=== PATIENT | male | born 1945 | race Caucasian/White ===

== ENCOUNTER → 2017-01-19 | Outpatient (CLI) | payer MEDICARE, OTHER | END | disposition home or self-care (01) | LOC: CFH 09:44 | PROVIDERS: ATTEND Nurse Practitioner Primary Care | DX: I08.3 Combined rheumatic disorders of mitral, aortic and tricuspid valves (principal); C61 Malignant neoplasm of prostate; E11.9 Type 2 diabetes mellitus without complications; I10 Essential (primary) hypertension; E78.2 Mixed hyperlipidemia | CPT/HCPCS: 93306 ==

== ENCOUNTER → 2017-09-13 | Outpatient (CLI) | payer MEDICARE, OTHER | LOC: ROC 08:36 | PROVIDERS: ATTEND Radiology Radiation Oncology | DX: C61 Malignant neoplasm of prostate (principal); K62.6 Ulcer of anus and rectum; I10 Essential (primary) hypertension; N35.9 Urethral stricture, unspecified; F17.210 Nicotine dependence, cigarettes, uncomplicated; Z85.46 Personal history of malignant neoplasm of prostate | CPT/HCPCS: G0463 ==

== ENCOUNTER 2019-09-25 08:59 | Outpatient (CLI) | payer MEDICARE, OTHER | END 2019-09-25 23:59 | disposition home or self-care (01) | LOC: ROC 08:59 | PROVIDERS: ATTEND Radiology Radiation Oncology | DX: C61 Malignant neoplasm of prostate (principal) | CPT/HCPCS: G0463 ==

== ENCOUNTER 2019-09-29 08:06 | Outpatient (CLI) | payer MEDICARE, OTHER ==
[2019-09-29] MEDS ORDERED: LEUPROLIDE (ELIGARD) 22.5 MG SYR SQ ONE (09:30)
== END 2019-09-29 23:59 | disposition home or self-care (01) ==
LOC: ROC 08:06
PROVIDERS: ATTEND Radiology Radiation Oncology
DX: Z51.11 Encounter for antineoplastic chemotherapy (principal); C61 Malignant neoplasm of prostate
CPT/HCPCS: 96402; J9217

== ENCOUNTER 2019-10-31 07:26 | Outpatient (CLI) | payer MEDICARE, OTHER ==
[2019-10-31] MEDS ORDERED: LIDOCAINE/PF 1%, 30ML IV ONE (09:30)
[2019-10-31] MEDS ORDERED: MIDAZOLAM 1 MG/ML, 5ML IVPush ONE (09:30)
[2019-10-31] MEDS ORDERED: FENTANYL PF 100 MCG/2ML IVPush ONE (09:30)
== END 2019-10-31 23:59 | disposition home or self-care (01) ==
LOC: ROC 07:26
PROVIDERS: ATTEND Radiology Radiation Oncology
DX: C61 Malignant neoplasm of prostate (principal)
CPT/HCPCS: 55876; 76942; 77332; 99156; A4648; J2250; J3010

== ENCOUNTER → 2019-11-20 | Outpatient (CLI) | payer MEDICARE, OTHER | END | disposition home or self-care (01) | LOC: CFH 09:43 | PROVIDERS: ATTEND Radiology Radiation Oncology | DX: C61 Malignant neoplasm of prostate (principal) | CPT/HCPCS: 72195 ==

== ENCOUNTER → 2019-12-29 | Outpatient (CLI) | payer MEDICARE, OTHER ==
[~2019-12-29] MED LIST: LEUPROLIDE 7.5 MG SQ ONE
== END | disposition home or self-care (01) ==
LOC: ROC 07:14
PROVIDERS: ATTEND Radiology Radiation Oncology
DX: Z51.11 Encounter for antineoplastic chemotherapy (principal); C61 Malignant neoplasm of prostate
CPT/HCPCS: 96402; J9217

== ENCOUNTER → 2020-01-22 | Outpatient (CLI) | payer MEDICARE, OTHER | END | disposition home or self-care (01) | LOC: ROC 08:00 | PROVIDERS: ATTEND Radiology Radiation Oncology | DX: C61 Malignant neoplasm of prostate (principal) | CPT/HCPCS: G0463 ==

== ENCOUNTER 2020-07-25 10:19 | Outpatient (CLI) | payer MEDICARE | END 2020-07-25 23:59 | disposition home or self-care (01) | LOC: ROC 10:19 | PROVIDERS: ATTEND Radiology Radiation Oncology | DX: Z08 Encounter for follow-up examination after completed treatment for malignant neoplasm (principal); Z85.46 Personal history of malignant neoplasm of prostate | CPT/HCPCS: G0463 ==

== ENCOUNTER 2020-12-13 10:33 | Emergency (ER) | payer MEDICARE ==
[~2020-12-13] VITALS: Ht 175.3 cm; Wt 86.3 kg
[2020-12-13 10:40] VITALS: BP 167/96
--- NOTE | 2020-12-13 11:02 | NUR ---
ERMD AT BEDSIDE FOR EVALUATION.
[2020-12-13 11:11] LABS: BASOPHILS % (AUTO) 1 % (0-1); EOSINOPHILS % (AUTO) 1 % (1-7); LYMPHOCYTES % (AUTO) 19 % (22-44); MEAN CORPUSCULAR HEMOGLOBIN 31.1 pg (27.5-34.5); MEAN CORPUSCULAR HGB CONC 34.4 g/dL (33.2-36.2); MEAN PLATELET VOLUME 7.2 fL (7.4-10.4); MONOCYTES % (AUTO) 7 % (2-9); NEUTROPHILS % (AUTO) 73 % (42-75); PLATELET COUNT 242 x10^3/uL (130-400); RED CELL DISTRIBUTION WIDTH 12.9 % (9.4-14.8)
[2020-12-13 11:12] LABS: MD NO
[2020-12-13 11:24] LABS: ALANINE AMINOTRANSFERASE 38 U/L (12-78); ALBUMIN 4.3 g/dL (3.4-5.0); ANION GAP 5 mmol/L (5-15); CALCIUM 9.4 mg/dL (8.5-10.1); CHLORIDE 110 mmol/L (98-107); CREATININE 1.24 mg/dL (0.7-1.3)
[2020-12-13 11:26] LABS: ALKALINE PHOSPHATASE 74 U/L (45-117); TOTAL PROTEIN 8.3 g/dL (6.4-8.2)
[2020-12-13] MEDS ORDERED: SUCRALFATE 1 GM TABLET PO SCH (11:30)
[2020-12-13] MEDS ORDERED: FAMOTIDINE 20 MG TABLET PO ONE (11:30)
[2020-12-13] MEDS ORDERED: FAMOTIDINE 20 MG TABLET ONE (11:39)
--- NOTE | 2020-12-13 11:42 | NUR ---
CARAFATE REQUESTED FROM PHARMACY.
--- NOTE | 2020-12-13 11:44 | NUR ---
ERMD AT BEDSIDE TO DISCUSS POC, VERBAL OKAY TO CANCEL CARAFATE.
[2020-12-13] MEDS ORDERED: SUCRALFATE 1 GM TABLET PO ONE (12:00)
--- NOTE | 2020-12-13 12:26 | NUR ---
Patient given discharge instructions and prescriptions and they have confirmed that they understand the instructions. Patient ambulatory with steady gait. NAD, all questions answered appropriately, denies additional needs at this time. No personal belongings left in room after discharge.
== END 2020-12-13 12:26 | disposition home or self-care (01) ==
LOC: ED 12:00
DX: K92.2 Gastrointestinal hemorrhage, unspecified (principal); K92.1 Melena; K64.8 Other hemorrhoids; R07.89 Other chest pain
CPT/HCPCS: 36415; 80053; 83690; 85025; 99283

== ENCOUNTER 2021-01-09 08:00 | Outpatient (CLI) | payer MEDICARE | END 2021-01-09 23:59 | disposition home or self-care (01) | LOC: ROC 08:00 | PROVIDERS: ATTEND Radiology Radiation Oncology | DX: Z08 Encounter for follow-up examination after completed treatment for malignant neoplasm (principal); Z85.46 Personal history of malignant neoplasm of prostate | CPT/HCPCS: G0463 ==

== ENCOUNTER 2021-03-26 07:35 | Outpatient (CLI) | payer MEDICARE | END 2021-03-26 23:59 | disposition home or self-care (01) | LOC: ROC 07:35 | PROVIDERS: ATTEND Radiology Radiation Oncology | DX: Z08 Encounter for follow-up examination after completed treatment for malignant neoplasm (principal); Z85.46 Personal history of malignant neoplasm of prostate | CPT/HCPCS: G2251 ==